=== PATIENT | male | born 1960 | race Caucasian/White ===

== ENCOUNTER 2021-06-30 19:58 | Emergency (ER) | payer OTHER ==
[2021-06-30 21:19] LABS: Appearance SLIGHTLY CLOUDY (CLEAR); Bacteria RARE /HPF (NEGATIVE); Bilirubin NEGATIVE (NEGATIVE); Blood SMALL Ery/ul (0-5); Glucose NEGATIVE (NEGATIVE); Ketones NEGATIVE (NEGATIVE); Leukocyte Esterase NEGATIVE (NEGATIVE); Mucus SLIGHT /HPF (NEGATIVE); Nitrite NEGATIVE (NEGATIVE); Protein,Urine Dip >=500 (Negative); RBC 0-2 /HPF (0-2); Specific Gravity 1.026 (1.005-1.025); Urobilinogen NEGATIVE mg/dL (0-1); WBC 0-2 /HPF (0-5)
--- NOTE | 2021-06-30 21:29 | ERPHSYRPT ---
- History of Present Illness Source: patient Exam Limitations: no limitations Patient Subjective Stated Complaint: pt states he tested positive 2 days ago for covid. c/o lower back pain and headache. Triage Nursing Assessment: pt alert and oriented, answers questions approp. pt ambulatory with steady gait noted. respirations nonlabored. skin warm and dry. pupils equal and reactive. bilat upper and lower ext strength equal and wnl. Physician History: 61 yo wm diagnosed w CV19 2 days ago presents w COOMBS/lumbar pain/urinary frequency/fever/cough/myalgias/arthralgias. Pt had Pfizer vaccine. Timing/Duration: other (3days) Method of Injury: other (No injury) Quality: aching Back Pain Location: lumbar spine Severity of Pain-Max: moderate Severity of Pain-Current: moderate Modifying Factors: Improves With: movement Associated Symptoms: fever, chills, nausea, problems urinating, No sweating, No urinary incontinence, No loss of bowel control, No vomiting, No light- headedness, No dizziness, No numbness in legs/feet Previous symptoms: no prior history Allergies/Adverse Reactions: No Known Drug Allergies Allergy (Verified 06/30/21 20:55) Hx Tetanus, Diphtheria Vaccination/Date Given: Yes Hx Influenza Vaccination/Date Given: No Hx Pneumococcal Vaccination/Date Given: No Immunizations Up to Date: Yes Travel Risk - International Travel Have you traveled outside of the country in past 3 weeks: No - Coronavirus Screening Are you exhibiting any of the following symptoms?: Yes Symptoms: Fever, Cough: New Onset, Headaches/Body Aches/Fatigue - Vaccine Status Have you recieved a Covid-19 vaccination: Yes 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[employer] - Vaccination Dates Date of 2cond Vaccination (if applicable): 2020 - Review of Systems Constitutional: No Symptoms, Fever, Chills Eyes: No Symptoms Ears, Nose, & Throat: No Symptoms Respiratory: No Symptoms, Cough Cardiac: No Symptoms Abdominal/Gastrointestinal: No Symptoms, No Nausea, No Vomiting, No Diarrhea Genitourinary Symptoms: No Symptoms, Frequency Musculoskeletal: No Symptoms, Arthralgias, Back Pain, Myalgias Skin: No Symptoms Neurological: No Symptoms, Headache Psychological: No Symptoms Endocrine: No Symptoms Hematologic/Lymphatic: No Symptoms Immunological/Allergic: No Symptoms - Past Medical History Pertinent Past Medical History: Yes Cardiac History: Coronary Artery Disease, Myocardial Infarction ([place]) History: Kidney Cancer Other Medical History: heart murmer - Past Surgical History Past Surgical History: Yes Genitourinary: Kidney Surgery - Social History Smoking Status: Never smoker Exposure to second hand smoke: No Drug Use: none Patient Lives Alone: No Significant Family History: no pertinent family hx - Nursing Vital Signs Nursing Vital Signs: Initial Vital Signs Temperature 98.4 F 06/30/21 20:26 Pulse Rate 82 06/30/21 20:26 Respiratory Rate 18 06/30/21 20:26 Blood Pressure 158/97 06/30/21 20:26 O2 Sat by Pulse Oximetry 94 L 06/30/21 20:26 Pain Scale Pain Intensity 5 Hypertensive - Physical Exam General Appearance: no apparent distress Eye Exam: PERRL/EOMI, eyes nml inspection Ears, Nose, Throat Exam: normal ENT inspection, TMs normal, pharynx normal, moist mucous membranes Neck Exam: normal inspection, non-tender, supple, full range of motion, No meningismus, No mass, No Brudzinski, No Kernig's Respiratory Exam: lungs clear, airway intact, No respiratory distress Cardiovascular Exam: regular rate/rhythm, normal heart sounds, normal peripheral pulses, No murmur Gastrointestinal Exam: soft, normal bowel sounds, No tenderness Back Exam: normal inspection, normal range of motion, No CVA tenderness, No vertebral tenderness Extremity Exam: normal inspection, normal range of motion Peripheral Pulses: carotid (R): 2+, carotid (L): 2+ Neurologic Exam: alert, oriented x 3, cooperative, child protective investigator II-XII nml as tested, normal mood/affect, nml cerebellar function, nml station & gait, sensation nml, No motor deficits, No sensory deficit Skin Exam: normal color, warm, dry, No rash Lymphatic Exam: No adenopathy SpO2 Interpretation: normal SpO2: 94 O2 Delivery: Room Air - Course Nursing assessment & vital signs reviewed: Yes - CT Exams Abdomen/Pelvis CT Interpretation: Tele-radiologist Report (Coronary artery calfications/Aortic valve calfication/Nothing acute) Ordered Tests: Active Orders 24 hr Category Date Time Status ABDOMEN AND PELVIS W/0 CONTRAS [CT] Stat Exams 06/30/21 21:38 Taken CULTURE,URINE Stat Lab 06/30/21 20:53 Received UA W/RFX UR CULTURE Stat Lab 06/30/21 20:53 Completed Medication Summary Discontinued Medications Generic Name Dose Route Start Last Admin Trade Name Camila PRN Reason Stop Dose Admin Hydromorphone HCl 1 mg 06/30/21 23:25 06/30/21 23:35 Hydromorphone 1 Mg/Ml Injection IM 06/30/21 23:26 1 mg STAT ONE Administration Hydromorphone HCl Confirm 06/30/21 23:26 Hydromorphone 1 Mg/Ml Injection Administered 06/30/21 23:27 Dose 1 mg .ROUTE .STK-MED ONE Ondansetron HCl 4 mg 06/30/21 23:25 06/30/21 23:35 Zofran Odt 4 Mg PO 06/30/21 23:26 4 mg STAT ONE Administration Ondansetron HCl Confirm 06/30/21 23:34 Zofran Odt 4 Mg Administered 06/30/21 23:35 Dose 4 mg .ROUTE .STK-MED ONE Lab/Rad Data: Laboratory Results 06/30/21 Range/Units 20:53 Urine Color YELLOW (YELLOW) Urine Appearance SLIGHTLY CLOUDY (CLEAR) Urine pH 5.0 (5-6) Ur Specific [employer] 1.026 (1.005-1.025) Urine Protein >=500 (Negative) Urine Ketones NEGATIVE (NEGATIVE) Urine Blood SMALL (0-5) Lionel/ul Urine Nitrite NEGATIVE (NEGATIVE) Urine Bilirubin NEGATIVE (NEGATIVE) Urine Urobilinogen NEGATIVE (0-1) mg/dL Ur Leukocyte Esterase NEGATIVE (NEGATIVE) Urine WBC (Auto) 0-2 (0-5) /HPF Urine RBC (Auto) 0-2 (0-2) /HPF U Hyaline Cast (Auto) 3-5 (0-2) /LPF Urine Bacteria (Auto) RARE (NEGATIVE) /HPF Urine Mucus (Auto) SLIGHT (NEGATIVE) /HPF Urine Culture Reflexed YES (NO) Urine Glucose NEGATIVE (NEGATIVE) mg/dL - Progress Progress Note: 06/30/21 23:26 1mg IM Dilaudid/4mg Zofran odt Counseled pt/family regarding: lab results, diagnosis, need for follow-up, rad results - Departure Departure Disposition: Home Clinical Impression: COVID-19 Condition: Stable Critical Care Time: No Referrals: DAVIN AVENDANO [Primary Care Provider] - Instructions: Coronavirus Disease 2019 (COVID-19) ([place]) Additional Instructions: Fluids VitaminD 10,000 units a day Pepcid 40mg a day Zinc 50mg a day Get a pulse oximeter and monitor oxygen saturation 2-3 times a day Return to ER for persistent oxygen saturation less than 91%
[2021-06-30] MEDS ORDERED: Hydromorphone 1 mg/ml Injection IM ONE (23:25)
[2021-06-30] MEDS ORDERED: ZOFRAN ODT 4 MG PO ONE (23:25)
[2021-06-30] MEDS ORDERED: Hydromorphone 1 mg/ml Injection ONE (23:26)
[2021-06-30] MEDS ORDERED: ZOFRAN ODT 4 MG ONE (23:34)
[2021-07-01 00:03] VITALS: BP 128/77; PULSE 65
[2021-07-01 01:40] VITALS: O2SAT 94
--- NOTE | 2021-07-01 09:08 | XRAY ---
Indication: Hematuria, dysuria, frequent urination, back pain, and headache. History kidney carcinoma. Positive Covid 19. Multiple contiguous axial images obtained through the abdomen and pelvis without contrast. Comparison: None Lung bases demonstrates minimal bibasilar subsegmental atelectasis/scarring. No infiltrate or effusion. Heart not enlarged. Noncontrasted stomach and bowel loops appear nonobstructed. Normal appendix. Mild scattered colonic diverticulosis, greatest sigmoid. No free fluid/air. A few splenic calcified granulomas. Left kidney demonstrates partial resection with 2 round cysts, largest measuring 3.6 cm inferiorly. No renal calculus or evidence for obstructive uropathy in either system. Remaining liver, gallbladder, pancreas, spleen, adrenal glands, right kidney, right ureter, and bladder appear unremarkable for noncontrast exam. Mild diffuse scattered vascular calcifications without AAA. Osseous structures intact with mild degenerative changes throughout the thoracolumbar spine. Small fatty right periumbilical ventral hernia. Impression: 1. Left renal postoperative changes with 2 cysts. Lack of IV contrast precludes further characterization. 2. Incidental colonic diverticulosis, scattered arteriosclerotic disease, chronic bony findings, and fatty periumbilical ventral hernia. Comment: Preliminary interpretation made by [facility]. No critical discrepancy.
== END 2021-06-30 23:55 | disposition home or self-care (01) ==
LOC: ED 19:58
DX: U07.1 COVID-19 (principal)
CPT/HCPCS: 74176; 81001; 87086; 96372; 99284; J1170; Q0162

== ENCOUNTER 2023-01-31 15:02 | Emergency (ER) | payer SELFPAY ==
[2023-01-31] MEDS ORDERED: Adacel Vial IM ONE ×2 (15:22→15:25)
--- NOTE | 2023-01-31 15:22 | ERPHSYRPT ---
- History of Present Illness Time Seen by Provider: 01/31/23 15:18 Source: patient Exam Limitations: no limitations Patient Subjective Stated Complaint: Pt states "I hit my head on a truck and cut it." Triage Nursing Assessment: Pt presented alert and oriented X 3, skin pwd. PT ambulates with an upright steady gait, able to speak in clear full sentences pt in no apaprent respiratory distress. pt denied any LOC. laceration to left temporal head. laceration 2 cm X 0.2 Physician History: Pt states "I hit my head on a truck and cut it." laceration to left temporal head. laceration 2 cm X 0.2 Timing/Duration: today Severity: mild Associated Symptoms: denies symptoms Allergies/Adverse Reactions: No Known Drug Allergies Allergy (Verified 06/30/21 20:55) Home Medications: Aspirin [Aspirin EC] 81 mg PO DAILY 01/31/23 [History] Metoprolol Succinate 50 mg [Toprol Xl 50 MG] 50 mg PO DAILY 01/31/23 [History] Hx Tetanus, Diphtheria Vaccination/Date Given: No Hx Influenza Vaccination/Date Given: No Hx Pneumococcal Vaccination/Date Given: No Immunizations Up to Date: Yes Travel Risk - International Travel Have you traveled outside of the country in past 3 weeks: No - Coronavirus Screening Are you exhibiting any of the following symptoms?: No Close contact with a COVID-19 positive Pt in past 14-21 Days: No - Vaccine Status Have you recieved a Covid-19 vaccination: Yes 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 rheumatic fever - Past Surgical History Past Surgical History: Yes Genitourinary: Kidney Surgery - Social History Smoking Status: Never smoker Exposure to second hand smoke: No Drug Use: none Patient Lives Alone: No Significant Family History: no pertinent family hx - Nursing Vital Signs Nursing Vital Signs: Initial Vital Signs Temperature 99.0 F 01/31/23 15:06 Pulse Rate 64 01/31/23 15:06 Respiratory Rate 20 01/31/23 15:06 Blood Pressure 145/79 01/31/23 15:06 O2 Sat by Pulse Oximetry 97 01/31/23 15:06 Pain Scale Pain Intensity 0 - Physical Exam General Appearance: no apparent distress Eye Exam: PERRL/EOMI Ears, Nose, Throat Exam: normal ENT inspection Neck Exam: normal inspection Respiratory Exam: normal breath sounds Cardiovascular Exam: regular rate/rhythm Extremity Exam: normal inspection Neurologic Exam: alert, oriented x 3 Skin Exam: laceration (4 cms long, superficial left temporal scalp) SpO2: 97 Procedures - Laceration/Wound Repair Left Temporal Time of Procedure: 15:20 Wound Location: Left, head Wound Length (cm): 4 Wound's Depth, Shape: superficial Wound Explored: clean Irrigated: Yes Hibiclens Prep: Yes Wound Repaired With: [place] (5 satples taken) Sterile Dressing Applied?: Yes - Course Nursing assessment & vital signs reviewed: Yes - Progress Progress: improved Medical Desision Making - Diagnostic Testing Diagnostic test were ordered, analyzed, and reviewed by me: No - Risk of complications Minimal Risk: Minimal risk of morbidity - Departure Departure Disposition: Home Clinical Impression: Laceration of head without complication Qualifiers: Encounter type: initial encounter Qualified Code(s): S01.91XA - Laceration without foreign body of unspecified part of head, initial encounter Condition: Stable Critical Care Time: Yes Critical Care Time(excluding separately billable procedures): Critical 30-74 mins Referrals: DAVIN AVENDANO [Primary Care Provider] - Follow up/PCP as directed Instructions: Laceration Repair With [facility] ([place]) Additional Instructions: Discharge/Care Plan NIKKI MCCORMICK was seen on 01/31/23 in the Emergency Room. The patient was counseled regarding Diagnosis,Lab results, Imaging studies, need for follow up and when to return to the Emergency Room. Prescriptions given: Discharge Note I have spoken with the patient and/or caregivers. I have explained the patient's condition, diagnosis and treatment plan based on the information available to me at this time. I have answered the patient's and/or caregiver's questions and addressed any concerns. The patient and/or caregivers have as good understanding of the patient's diagnosis, condition and treatment plan as can be expected at this point. The vital signs have been stable. The patient's condition is stable and appropriate for discharge from the emergency department. The patient will pursue further outpatient evaluation with the primary care physician or other designated or consulting physician as outlined in the discharge instructions. The patient and/or caregivers are agreeable to this plan of care and follow-up instructions have been explained in detail. The patient and/or caregivers have received these instruction. The patient/and or caregivers are aware that any significant change in condition or worsening of symptoms should prompt an immediate return to this or the closest emergency department or call 911. NIKKI MCCORMICK was seen on 01/31/23 n the Emergency Room. At that time you were treated for an emergent condition, during your visit Laboratory, Radiology and/or other procedures may have been ordered. It is very important that you follow-up with your Primary Care Physician DAVIN AVENDANO within the next 24- 48 hours to review your Emergency Room visit and the final results of testing that was ordered. Some test results such as Urine Cultures, Blood Cultures, and other cultures if ordered will not be finalized for 24-48 hours. If you do not have a Primary Care Provider please call the medical records department at [phone] ext [phone] to obtain a copy of your results or you may sign into our patient portal to obtain these results by visiting us @ [email or web address] and completing the following steps: 1. Click on the Patient Portal link 2. Click the Patient Self Enrollment Link to complete the enrollment form and entering your 3. Once the enrollment form is completed you will receive an email with a temporary ID and password at the email address you provided. 4. Next choose a user name and password. Your user name must be at least 4 characters long and your password must be at least 4 characters long. 5. Choose a security question from the list and provide your answer to the question. If you already have signed into the Health Portal you may access your Health Care Information 14/06 by the following steps: 1. Login to our website @ [email or web address] 2. Enter your original user name and password. FAQS The [facility] Health Portal is an online tool that contains your Lab Results, Radiology Reports, Visit History, Discharge Instructions and Health Summary Lab and Radiology Results will not be available for 72 hours on the portal. The Portal is a secure site, passwords are encryted and URLs are re-written so they cannot be copied and pasted. You and authorized family members are the only ones who can access your Portal. Also there is a timeout feature that protects your information if you leave the Portal page open. If you have technical difficulty please use the Contact Us link on the page this will allow you to submit any questions you have regarding the Portal or you may contact the Medical Record Department at [phone] ext [phone].
[2023-01-31 15:47] VITALS: BP 119/66; PULSE 66; O2SAT 98
== END 2023-01-31 15:46 | disposition home or self-care (01) ==
LOC: ED 15:02
DX: S01.01XA Laceration without foreign body of scalp, initial encounter (principal); W22.8XXA Striking against or struck by other objects, initial encounter; Z79.899 Other long term (current) drug therapy
CPT/HCPCS: 12002; 90471; 90715; 99283; 99291